=== PATIENT | female | born 1965 | race Caucasian/White ===

== ENCOUNTER 2018-08-06 08:13 | Inpatient (IN) ==
[2018-08-06] MEDS ORDERED: Sodium Chlor 0.9% Inj 500 ML IV.CONT ONE (10:15)
[2018-08-06] MEDS ORDERED: Chlorhexidine Gluconate 2% 1 Pack (2 Cloths) TOPICAL ONE (10:15)
[2018-08-06] MEDS ORDERED: Metoprolol Tartrate 25 MG Tablet PO ONE (10:15)
[2018-08-06] MEDS ORDERED: ceFAZolin Inj 3,000 MG in Sodium Chlor 0.9% Inj 100 ML IV.SIG ONE (11:00)
[2018-08-06] MEDS ORDERED: Neostigmine Inj 5 MG/5 ML Syringe IV.PUSH ONE (12:52)
[2018-08-06] MEDS ORDERED: Lidocaine PF 1% Inj 5 ML Syringe OTHER ONE (12:52)
[2018-08-06] MEDS ORDERED: Glycopyrrolate Inj 1 MG/5 ML Syringe IV.PUSH ONE (12:52)
[2018-08-06] MEDS ORDERED: Phenylephrine/NS 1000 MCG/10ML Syringe IV.PUSH ONE (12:52)
[2018-08-06] MEDS ORDERED: ceFAZolin 2 GM Premix Inj 2 GM/50 ML PIGGYBACK IV.SIG ONE (13:53)
[2018-08-06] MEDS ORDERED: Bupivacaine/Epinephrine Inj 0.25% 50 ML Vial ONE (13:53)
[2018-08-06] MEDS ORDERED: ceFAZolin 1 GM Premix Inj 1 GM/50 ML FROZ.PIGGY IV.SIG ONE (13:53)
[2018-08-06] MEDS ORDERED: Post-op Orders (for Pharmacy) OTHER STA (14:14)
[2018-08-06] MEDS ORDERED: Acetaminophen-HYDROcodone 325/7.5 Liq 15 ML UDC PO PRN (14:14)
[2018-08-06] MEDS ORDERED: diphenhydrAMINE HCl 12.5 MG/5 ML Elixir UDC PO PRN (14:14)
[2018-08-06] MEDS ORDERED: Naloxone Inj 0.4 MG/ML Vial IV.PUSH PRN (14:16)
[2018-08-06] MEDS ORDERED: Morphine Inj 30 MG/30 ML PCA.VIAL PCA PRN (14:16)
[2018-08-06] MEDS ORDERED: fentaNYL Citrate Inj 100 MCG/2 ML Ampul ONE (14:34)
[2018-08-06] MEDS ORDERED: *morphine SULFATE 4 MG/ML PERIprocedure ONLY ONE ×3 (14:40→15:00)
[2018-08-06] MEDS: KCL 20 mEq/NACL 0.45% Inj 1,000 ML IV.CONT SCH (14:54)
[2018-08-06] MEDS ORDERED: HYDROmorphone PF Inj 2 MG/ML Vial ONE (15:41)
[2018-08-06] MEDS: Enoxaparin Inj 40 MG/0.4 ML Syringe SQ SCH (19:47)
[2018-08-07] MEDS: KCL 20 mEq/NACL 0.45% Inj 1,000 ML IV.CONT SCH ×3 (00:33→15:28)
[2018-08-07 07:50] LABS: Baso % (Auto) 0.3 % (0.0-2.0); Eos % (Auto) 0.4 % (0.0-4.0); Hematocrit 34.6 % (35.0-46.0); Hemoglobin 11.4 gm/dL (11.6-15.3); Lymph # (Auto) 1.1 th/mm3 (1.0-4.8); Lymph % (Auto) 12.4 % (9.0-44.0); Mean Corpuscular HGB Conc 32.8 % (32.0-36.0); Mean Corpuscular Hemoglobin 24.5 pg (27.0-34.0); Mean Corpuscular Volume 74.8 fL (80.0-100.0); Mean Platelet Volume 9.1 fL (7.0-11.0); Mono # (Auto) 0.4 th/mm3 (0.0-0.9); Mono % (Auto) 4.8 % (0.0-8.0); Neut # (Auto) 7.2 th/mm3 (1.8-7.7); Neut % (Auto) 82.1 % (16.0-70.0); Platelet Count 189 th/mm3 (150-450); Red Blood Count 4.63 mil/mm3 (4.00-5.30); Red Cell Distribution Width 18.7 % (11.6-17.2); White Blood Count 8.8 th/mm3 (4.0-11.0)
[2018-08-07 08:13] VITALS: RESP 19
[2018-08-07 08:13] LABS: Calcium 8.2 mg/dL (8.5-10.1); Carbon Dioxide 27.3 meq/L (21.0-32.0); Magnesium 2.3 mg/dL (1.5-2.5); Potassium 4.2 meq/L (3.5-5.1)
--- NOTE | 2018-08-07 11:36 | XR ---
EXAM DATE: 08/07/2018 12:00 AM EDT AGE/SEX: 53 years / Female INDICATIONS: Chest pain today. Post op vertical sleeve yesterday. CLINICAL DATA: This is the patient's initial encounter. Patient reports that signs and symptoms have been present for 1 day and indicates a pain score of 5/10. MEDICAL/SURGICAL HISTORY: Diabetes. Hypertension. Tubal ligation. Gastric sleeve. COMPARISON: No prior exams available for comparison. FINDINGS: Minimal patchy airspace disease in the left lung base. The cardiomediastinal contours are unremarkabl e. Osseous structures are intact. CONCLUSION: 1. Minimal patchy airspace disease in the left lung base, presumably atelectasis. Electronically signed by: Ming Wiseman MD 08/07/2018 11:34 AM EDT
[2018-08-07] MEDS ORDERED: Lisinopril 20 MG Tablet PO SCH (12:00)
[2018-08-07] MEDS: Sucralfate 1 GM Tablet PO SCH ×2 (12:26→17:36)
[2018-08-07] MEDS ORDERED: Ketorolac Inj 30 MG/ML (IVP) Vial IV.PUSH PRN (13:05)
--- NOTE | 2018-08-07 14:54 | P.PNGS ---
Subjective Patient reports: pain is less, tolerating liquids well (Ambulating adlib, c/o mild chest pain which is relieved with warm fluids and pain medication, denies dyspnes, denies SOB or palpitations. ), flatus Physical Exam Vital signs: Vital Signs 08/06/18 15:00 08/06/18 15:15 08/06/18 15:30 Temperature Pulse Rate 68 69 66 Respiratory Rate 22 23 20 Blood Pressure 125/68 117/67 130/77 Pulse Oximetry 95 94 L 92 L 08/06/18 15:38 08/06/18 15:45 08/06/18 16:00 Temperature 98.4 F Pulse Rate 77 70 Respiratory Rate 18 18 20 Blood Pressure 122/67 125/68 Pulse Oximetry 93 L 93 L 08/06/18 17:00 08/06/18 20:00 08/06/18 21:23 Temperature 97.2 F L Pulse Rate 79 79 Respiratory Rate 16 20 Blood Pressure 133/67 134/65 Pulse Oximetry 95 92 L 95 08/07/18 00:00 08/07/18 04:00 08/07/18 08:00 Temperature 97.1 F L 97.4 F L 97.8 F Pulse Rate 85 86 86 Respiratory Rate 18 18 19 Blood Pressure 139/65 166/77 H 174/91 H Pulse Oximetry 92 L 92 L 91 L 08/07/18 12:00 Temperature 97.5 F L Pulse Rate 79 Respiratory Rate 19 Blood Pressure 145/69 H Pulse Oximetry 90 L Intake & Output 08/06/18 08/07/18 08/07/18 18:59 06:59 18:59 Intake Total 1200 / 1200 1300 / 1300 1300 / 1300 Output Total 20 / 20 300 / 300 Balance 1180 / 1180 1000 / 1000 1300 / 1300 Weight 107.5 kg 107 kg Intake: IV 200 / 200 1300 / 1300 1300 / 1300 Potassium Chlor 20 mEq/NACL 0. 1000 / 1000 1000 / 1000 45% Inj 1,000 ML @ 125 mls/hr IV.CONT .Q8H [facility] Rx#:[id number] Ofirmev Inj 1,000 mg In 100 ml 200 / 200 100 / 100 @ 400 mls/hr IV.SIG Q6H [facility] Rx# :[id number] Ancef 1 GM Premix Inj 1 gm In 50 / 50 50 ml @ 0 mls/hr IV.SIG .STK- [facility] Rx#:[id number] Ancef 2 GM Premix Inj 2 gm In 50 / 50 50 ml @ 0 mls/hr IV.SIG .STK- [facility] Rx#:[id number] Ancef Inj 1,000 MG In NS Inj 100 / 100 200 / 200 100 ML @ 200 mls/hr IV.SIG Q8H [facility] Rx#:[id number] Anesthesia Amount 1000 / 1000 Output: Urine 300 / 300 Estimated Blood Loss 20 / 20 Other: Date of Last Bowel Movement 08/07/18 Weight On Admission 107.5 kg - Constitutional no acute distress - Routine Respiratory Exam Present: CTA bilaterally - Routine Cardiovascular Exam Present: RRR, S1, S2 - Routine Abdominal Exam Present: soft, tenderness Comments: normal post op tenderness, laproscopic sites C/D/I Results - Labs 08/07/18 06:54 08/07/18 06:54 Laboratory Results - last 24 hr 08/07/18 08/07/18 08/07/18 06:54 06:54 12:00 WBC 8.8 RBC 4.63 Hgb 11.4 L Hct 34.6 L MCV 74.8 L MCH 24.5 L MCHC 32.8 RDW 18.7 H Plt Count 189 MPV 9.1 Neut % (Auto) 82.1 H Lymph % (Auto) 12.4 [place] % (Auto) 4.8 Eos % (Auto) 0.4 Baso % (Auto) 0.3 Neut # (Auto) 7.2 Lymph # (Auto) 1.1 [place] # (Auto) 0.4 Eos # (Auto) 0.0 Baso # (Auto) 0.0 WBC Differential . Differential Comment Auto diff final Sodium 139 Potassium 4.2 Chloride 105 Carbon Dioxide 27.3 Anion Gap 7 BUN 21 H Creatinine 0.75 Estimated GFR 81 L POC Glucose 126 H Random Glucose 102 Calcium 8.2 L Magnesium 2.3 - Imaging Imaging: ITS Impressions Chest X-Ray 08/07/18 00:00 CONCLUSION: 1. Minimal patchy airspace disease in the left lung base, presumably atelectasis. Assessment and Plan - Plan POD #1 laproscopic RNY Tolerating 30 ml q 30; advance to 60 ml q 30 Restart Plavix and BP meds SSI low dose Novolog. D/C SWING MANAGER Start Carafate. Sats low overnight obtain CXR Continue to ambulate ad [place] Continue IS/SCD Code Status: full Discussed Condition With: patient
[2018-08-07 16:20] VITALS: BP 170/100; PULSE 72; TEMP 97.1; O2SAT 94
[2018-08-07] MEDS: Enoxaparin Inj 40 MG/0.4 ML Syringe SQ SCH (17:35)
--- NOTE | 2018-08-17 11:22 | MP ---
cc: Babar Bynum MD DATE OF OPERATION: 08/06/2018 PREOPERATIVE DIAGNOSES: Morbid obesity with a body mass index of 43 complicated by essential hypertension and type 2 diabetes. POSTOPERATIVE DIAGNOSES: Morbid obesity with a body mass index of 43 complicated by essential hypertension and type 2 diabetes. PROCEDURE PERFORMED: Laparoscopic vertical sleeve gastrectomy over a 36 [place] Vi[employer] bougie. SURGEON: Babar Bynum MD LONG WALL MINING MACHINE TENDER: Dontrell Kelly MD. Dr. Kelly's assistance was necessary for the procedure due to the complexity of the procedure. Dr. Kelly assisted with manipulation and exposure during the procedure. The speech correction assistant provided by [employer] was utilized at the back table and managing the camera. ANESTHESIA: General endotracheal anesthesia. ESTIMATED BLOOD LOSS: Scant. FINDINGS: Fatty liver. SPECIMENS: None. COMPLICATIONS: None. PROCEDURE IN DETAIL: The patient was brought to the operating room and placed on the operating table in supine position, bilateral sequential inflation device placed on lower extremities. General anesthesia was instituted. Antibiotics was initiated. The abdomen was prepped and draped sterilely. A point 15 cm distal to the xiphoid in the midline was anesthetized with 0.25% Marcaine with epinephrine. A skin incision was made, 5-mm OptiView port placed under direct vision and pneumoperitoneum created. Under direct vision, three 5-mm left upper quadrant, a 15-mm right upper quadrant, 5-mm right upper quadrant ports placed. Prior to placement of all ports the skin and peritoneum were anesthetized with 0.25% Marcaine with epinephrine. The patient was placed in reverse Trendelenburg position left side up, the [place]-Flex retractor was placed. The left lobe of the liver was retracted. The vasculature along the greater curvature of the stomach was using harmonic scalpel starting a distance 5-cm proximal to the pylorus and carried towards the angle of His. The angle of His was taken down bluntly. Posterior ligamentous attachments were sharply . A 36-[place] ViSiGi bougie was placed at the start of the case, was placed on suction. Division of the stomach started 5 cm proximal to the pylorus and carried towards the angle of His to completely excise approximately 80% of the stomach. This was performed using an [employer] Flex stapler at the pylorus. The first firing was with a black load, followed by a green load and four gold loads. All staple loads were reinforced with SeamGuard. A distance of 2 cm was left from the angle incisura and the staple line and a distance of 1 cm left from the GE junction and the staple line. The pylorus was then occluded, methylene blue tinged saline was instilled. There was no evidence of extravasation. The gastrocolic ligament was then sutured to the posterior leaflet of the SeamGuard using a 2-0 Vicryl suture in a running manner. Bleeding points were controlled with Evicel. The excised stomach was removed from the peritoneal cavity through the 15-mm port site in an Endopouch. The fascia at the 15-mm port site was approximated with 0 Vicryl suture. The CO2 was then released, all ports were removed, all skin incisions closed with 4-0 Monocryl. The abdominal wall was cleaned. A sterile dressing was placed. The patient was awakened and taken to the recovery room. MD JESUS Olvera/wanda , 07:50 AM , 07:53 AM
== END 2018-08-07 21:45 | disposition home or self-care (01) ==
LOC: HSDI 08:13 → EDSTATUS 13:00 → N07 17:27
PROVIDERS: ADMIT Surgery; ATTEND Surgery